=== PATIENT | female | born 1995 | race Two or more races ===

== ENCOUNTER 2016-04-20 15:14 | Emergency (ER) | payer OTHER, MEDICAID ==
[2016-04-20 15:20] VITALS: RESP 16; TEMP 97.3
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
[2016-04-20] MEDS ORDERED: IBUPROFEN 600 MG TAB PO ONE ×2 (16:37→16:41)
[2016-04-20 16:40] VITALS: BP 99/66; PULSE 79; O2SAT 94
== END 2016-04-20 16:40 | disposition home or self-care (01) ==
DX: S69.91XA Unspecified injury of right wrist, hand and finger(s), initial encounter (principal); W22.8XXA Striking against or struck by other objects, initial encounter; Y93.89 Activity, other specified

== ENCOUNTER 2017-01-28 10:43 | Emergency (ER) | payer MEDICAID ==
[2017-01-28 10:54] VITALS: PULSE 98; RESP 18; TEMP 98.6; O2SAT 100
[2017-01-28 10:59] VITALS: BP 129/53
--- NOTE | 2017-01-28 11:52 | EDPHY ---
General Narrative: CHIEF COMPLAINT: Left knee injury HISTORY OF PRESENT ILLNESS: Patient complains of left knee injury that occurred last night while walking. She was standing there and 2 dogs bumped into her left knee with her foot planted. She describes a valgus injury. She now has pain over the left lateral knee. It is severe. Difficult to walk on. Radiates in the left hip. No numbness or tingling. No lacerations. No other associated complaints or modifying factors. ESTABLISHED ORTHOPEDIST: None REVIEW OF SYSTEMS: Ten systems reviewed and are negative unless otherwise noted in the HPI PAST MEDICAL HISTORY: Previous orthopedic injury PAST SURGICAL HISTORY: None SOCIAL HISTORY: Currently student at [employer] FAMILY HISTORY: Noncontributory EXAMINATION General Appearance: Alert, no distress Cardiovascular: Pulses normal throughout. Brisk cap refill Neurological: A&O, sensory symmetric, strength symmetric. No footdrop. Skin: Warm and dry, no rash. No petechiae or purpura. No lacerations or abrasions Extremities: Upper extremity range of motion is symmetric in all painful. Right lower extremity range of motion intact. Left lower extremity tender palpation of the lateral knee. Range of motion is intact but painful. No tenderness of the left ankle or foot. No tenderness of the left calcaneus. Resting angle of 45 in the knee. Neurovascular intact distally. Psychiatric: Mood and affect normal DIFFERENTIAL DIAGNOSES: Including but not limited to sprain, strain, fracture, dislocation MDM: 11:40 a.m. Acute sprain of the left knee, suspected lateral collateral ligament. No fracture on x-ray. Neurovascular intact. Weightbearing as tolerated instructions. We will provide crutches for short-term relief. Recommend orthopedic follow-up for definitive care. ED precautions for worsening symptoms , numbness or tingling. Patient is comfortable with this plan. Discharged in stable condition. ED Precautions: Worsening pain. Erythema, edema, cyanosis, pallor, paresthesia or anesthesia. - Diagnostics Imaging Results: Imaging Impressions Knee X-Ray 01/28/17 10:54 Impression: There is no acute osseous abnormality. If there is progression of the patient's symptoms, MR imaging could be considered. - History Smoking Status: Never smoked - Objective Vital Signs: Initial Vital Signs Temperature (C) 98.6 F 01/28/17 10:51 Heart Rate 98 01/28/17 10:51 Respiratory Rate 18 01/28/17 10:51 Blood Pressure 84/56 L 01/28/17 10:51 O2 Sat (%) 100 01/28/17 10:51 O2 Delivery Mode Room Air Allergies/Adverse Reactions: No Known Allergies Allergy (Unverified 01/28/17 10:51) Home Medications: Medication Instructions Recorded NK [No Known Home Meds] 01/28/17 Departure - Departure Disposition: Home, Routine, Self-Care Clinical Impression: Knee LCL sprain Qualifiers: Encounter type: initial encounter Laterality: left Qualified Code(s): S83.422A - Sprain of lateral collateral ligament of left knee, initial encounter Condition: Good Instructions: Knee Sprain (ED) Additional Instructions: 1. Weightbearing as tolerated 2. Naproxen 1 pill by mouth twice daily 3. Orthopedic follow-up 4. ED precautions as discussed Referrals: NONE *PRIMARY CARE P,. [Primary Care Provider] - As per Instructions Andrés Lima MD [Medical Doctor] - As per Instructions Stand Alone Forms: School Excuse
[2017-01-28] MEDS ORDERED: NAPROXEN SODIUM 220 MG TAB PO ONE (11:53)
== END 2017-01-28 12:14 | disposition home or self-care (01) ==
DX: S83.422A Sprain of lateral collateral ligament of left knee, initial encounter (principal); W54.1XXA Struck by dog, initial encounter; Y99.8 Other external cause status; Y93.01 Activity, walking, marching and hiking

== ENCOUNTER 2017-05-06 15:58 | Emergency (ER) | payer MEDICAID ==
[2017-05-06 16:07] VITALS: BP 103/69; PULSE 94; RESP 16; TEMP 97.9; O2SAT 96
--- NOTE | 2017-05-06 16:37 | EDPHY ---
H & P Stated Complaint: dysuria Source: Patient Exam Limitations: No limitations - Personal History LMP (Females 10-55): 22-28 Days Ago Current Tetanus/Diphtheria Vaccine: Yes - Medical/Surgical History Hx Asthma: Yes Hx Chronic Respiratory Disease: No Hx Diabetes: No Hx Cardiac Disease: No Hx Renal Disease: No Hx Cirrhosis: No Hx Alcoholism: No Hx HIV/AIDS: No Hx Splenectomy or Spleen Trauma: No Other PMH: PSH: tooth implant;. PMH: ovarian cyst; uti; kidney infection, MIGRAINES, ASTHMA - Social History Smoking Status: Never smoked Time Seen by Provider: 05/06/17 16:34 HPI/ROS: HPI: This is a 22-year-old female who presents with Chief Complaint: Dysuria Location: Quality: Dysuria Duration: 3-5 days Signs and Symptoms: no fever, no nausea, no vomiting, no hematemesis, no blood in stool, no abdominal bloating, no diarrhea, no back pain, + urinary frequency , + burning with urination, no vaginal bleeding/discharge, no indigestion, no chest pain, no shortness of breath, no neck stiffness Timing: Every time she urinates Severity: Moderate Context: The patient lives in [facility] but does not have a PCP presents with complaints of 3-5 day history of burning with urination, urinary frequency that feels like she starting to have a urinary tract infection. She has had them in the past but none within the last year. She denies fever/back pain/nausea/vomiting/abdominal pain. She is sexually active. Reports her last pelvic exam was approximately 1 year ago. Denies vaginal bleeding/discharge. Last menstrual period was 2 weeks ago. Patient also reports cold symptoms developing over the last 1-2 days. Did not receive influenza vaccine this year. Modifying Factors: None Comment: ROS: see HPI Constitutional: No fever, no chills, no weight loss Eyes: No blurred vision Respiratory: No shortness of breath, no cough Cardiovascular: No chest pain, no palpitations Gastrointestinal: No nausea, no vomiting, no diarrhea, no hematemesis, no blood in stool Genitourinary: + dysuria, no blood in urine Extremities: No myalgias, no edema Neurologic: No weakness, no numbness Skin: No rashes, no petechiae Hematologic: No bruising, no bleeding MEDICAL/SURGICAL/SOCIAL HISTORY: PSH: tooth implant PMH: ovarian cyst; uti; kidney infection, MIGRAINES, ASTHMA Social history: Employed. CONSTITUTIONAL: Well-appearing, young adult female, awake and alert, no obvious distress HEENT: Atraumatic and normocephalic, PERRL, EOMI. Tympanic membranes clear. Oropharynx clear, no exudate and moist pink mucosa. Airway patent. No lymphadenopathy. No meningismus. Cardiovascular: Normal S1/S2, regular rate, regular rhythm, without murmur rub or gallop. PULMONARY/CHEST: Symmetrical and nontender. Clear to auscultation bilaterally. Good air movement. No accessory muscle usage. ABDOMEN: Soft, nondistended, nontender, no rebound, no guarding, no peritoneal signs, no masses or organomegaly. No CVAT. EXTREMITIES: 2/2 pulses, strength 5/5, no deformities, no clubbing, no cyanosis or edema. NEUROLOGICAL: no focal neuro deficits. GCS 15. SKIN: Warm and dry, no erythema. no rash. Good capillary refill. (Zoe Tolliver) Constitutional: Initial Vital Signs Temperature (C) 36.6 C 05/06/17 16:05 Heart Rate 94 05/06/17 16:05 Respiratory Rate 16 05/06/17 16:05 Blood Pressure 103/69 05/06/17 16:05 O2 Sat (%) 96 05/06/17 16:05 O2 Delivery Mode Room Air Allergies/Adverse Reactions: No Known Allergies Allergy (Verified 05/06/17 16:04) Home Medications: Medication Instructions Recorded Azo 05/06/17 Nitrofurantoin Monohyd/M-Cryst 100 mg PO BID #14 capsule 05/06/17 [Macrobid 100 mg Capsule] Medical Decision Making ED Course/Re-evaluation: Urinalysis shows 1+ bacteria, 1-3 WBCs and RBCs, sent for urine culture, Macrobid given has no PCP to follow up on Patient will be referred to [facility]. Passed p.o. trial prior to discharge. Afebrile no systemic signs. No indication for pelvic exam at this time. No signs of otitis media/sinusitis/hypoxia/wheezing/pharyngitis This patient was seen under the supervision of my secondary supervising physician. I evaluated care for this patient independently. (Zoe Tolliver) I did not see this patient while she was in the emergency department. However her care was discussed with the PA while the patient was in the department. I agree with treatment plan and manage (Eric Ni) Differential Diagnosis: Differential diagnosis includes but is not limited to urinary tract infection, pyelonephritis, cystitis. (Zoe Tolliver) - Data Points Laboratory Results: 05/06/17 05/06/17 16:00 16:00 Urine Color RASHEED Urine Appearance CLEAR Urine pH 7.0 (5.0-7.5) Ur Specific [place] 1.018 (1.002-1.030) Urine Protein NEGATIVE (NEGATIVE) Urine Ketones NEGATIVE (NEGATIVE) Urine Blood NEGATIVE (NEGATIVE) Urine Nitrate NEGATIVE (NEGATIVE) Urine Bilirubin NEGATIVE (NEGATIVE) Urine Urobilinogen NEGATIVE EU EU (0.2-1.0) Ur Leukocyte Esterase NEGATIVE (NEGATIVE) Urine RBC 1-3 /hpf /hpf (0-3) Urine WBC 1-3 /hpf /hpf (0-3) Ur Epithelial Cells TRACE /lpf /lpf (NONE-1+) Urine Bacteria 1+ /hpf H /hpf (NONE SEEN) Urine Mucus TRACE /lpf /lpf (NONE-1+) Urine Glucose NEGATIVE (NEGATIVE) Urine Test NEGATIVE Departure - Departure Disposition: Home, Routine, Self-Care Clinical Impression: Bacteria in urine, Upper respiratory infection Condition: Good Instructions: Urinary Tract Infection in Women (ED) Additional Instructions: Consume a minimum of 8-10 glasses of water or electrolyte fluid replacement drinks that include Gatorade, Powerade, Pedialyte. Please refrain from having sexual intercourse until all symptoms have resolved. Take all of the antibiotics until complete as directed. Use joqv-[id number] cough syrup, cough drops, decongestants for your symptoms of a cold. Referrals: [facility],. [Clinic] - As per Instructions Stand Alone Forms: School Excuse Prescriptions: Nitrofurantoin Monohyd/M-Cryst [Macrobid 100 mg Capsule] 100 mg PO BID #14 capsule
== END 2017-05-06 16:45 | disposition home or self-care (01) ==
DX: R82.71 Bacteriuria (principal); N39.0 Urinary tract infection, site not specified; J45.909 Unspecified asthma, uncomplicated; B96.89 Other specified bacterial agents as the cause of diseases classified elsewhere

== ENCOUNTER 2017-06-01 11:52 | Emergency (ER) | payer MEDICAID ==
[2017-06-01 11:59] VITALS: BP 111/83; PULSE 109; RESP 20; TEMP 98.4; O2SAT 96
--- NOTE | 2017-06-01 12:03 | EDPHY ---
H & P Stated Complaint: flank pain - Personal History LMP (Females 10-55): 15-21 Days Ago Current Tetanus/Diphtheria Vaccine: Yes Current Tetanus Diphtheria and Acellular Pertussis (TDAP): Yes - Medical/Surgical History Hx Asthma: Yes Hx Chronic Respiratory Disease: No Hx Diabetes: No Hx Cardiac Disease: No Hx Renal Disease: No Hx Cirrhosis: No Hx Alcoholism: No Hx HIV/AIDS: No Hx Splenectomy or Spleen Trauma: No Other PMH: PSH: tooth implant;. PMH: ovarian cyst; uti; kidney infection, MIGRAINES, ASTHMA - Social History Smoking Status: Never smoked Time Seen by Provider: 06/01/17 12:00 HPI/ROS: CHIEF COMPLAINT: Bilateral flank pain "I think I have urinary tract infection " HISTORY OF PRESENT ILLNESS: 22-year-old immunocompetent female complaining 3 days of bilateral flank pain with antecedent increased frequency and dysuria. No vomiting. Positive nausea. No fever or chills. No abdominal pain. No abnormal vaginal bleeding or discharge. No headache. No chest pain. No flu- like symptoms. No incontinence no retention no saddle anesthesia no radiculopathy. She was seen emergency department approximately 1 month ago for UTI like symptoms states that she felt better after few days of antibiotic therapy. REVIEW OF SYSTEMS: A ten point review of systems was performed and is negative with the exception of the items mentioned in the HPI PAST MEDICAL & SURGICAL HISTORY: No pertinent medical or surgical history SOCIAL HISTORY: Nonsmoker PHYSICAL EXAM (Prior to examination, patient consented to physical exam, hands were washed and my usual and customary physical exam procedures followed) 1) GENERAL: Well-developed, well-nourished, alert and oriented. Appears to be in no acute distress. 2) HEAD: Normocephalic, atraumatic 3) HEENT: Pupils equal, round, reactive to light bilaterally. Sclera anicteric. 4) NECK: Full range of motion, no meningeal signs. 5) LUNGS: Clear auscultation bilaterally, no wheezes, no rhonchi, no retractions. 6) HEART: Regular rate and rhythm, no murmur, no heave, no gallop. 7) ABDOMEN: No guarding, no rebound, no focal tenderness, negative McBurney's, negative Monzon's, negative Rovsing's, negative peritoneal sign, 8) MUSCULOSKELETAL: Moving all extremities, no focal areas of tenderness, no obvious trauma. No peripheral edema or discoloration. 9) BACK: Positive bilateral CVA tenderness, no midline vertebral tenderness, no fluctuance, no step-off, no obvious trauma, no visual or palpable . abnormality. Patella Achilles reflexes intact to bilateral strength 5/5. 10) SKIN: No rash, no petechiae. 11) Psychiatric: Patient is oriented X 3, there is no agitation. DIFFERENTIAL DIAGNOSIS: In no particular include but limited to cystitis, pyelonephritis, perinephric abscess, nephrolithiasis, muscle strain, (Olga Lidia Carolina) Constitutional: Initial Vital Signs Temperature (C) 36.9 C 06/01/17 11:56 Heart Rate 109 H 06/01/17 11:56 Respiratory Rate 20 06/01/17 11:56 Blood Pressure 111/83 H 06/01/17 11:56 O2 Sat (%) 96 06/01/17 11:56 O2 Delivery Mode Room Air Allergies/Adverse Reactions: No Known Allergies Allergy (Verified 06/03/17 20:20) Home Medications: Medication Instructions Recorded Cephalexin [Keflex] 500 mg PO TID 7 Days cap 06/01/17 Medical Decision Making ED Course/Re-evaluation: 12:15 p.m. I reviewed the patient's old medical records including urine cultures dated 05/06/2017 showing multiple colony types. At this time awaiting urinalysis. I recommended IV hydration and laboratories which she declines at this time, prefers only urinalysis. Care of patient under supervision of secondary supervising physician Dr Jeannette Daly. 1:10 p.m.: Re-evaluation, discussed her laboratory results positive for bacteriuria and pyuria. She does not want IV intervention. I have offered analgesia she only wants nonnarcotic, only wants Motrin and Tylenol. Plan will be discharged with oral Keflex. At this time I think she can be treated on outpatient basis as she has had no nausea or vomiting, doubt sepsis. (Olga Lidia Carolina) Other Provider: The patient was evaluated and managed by the Physician Director Of Sales Marketing. My co- signature indicates that I have reviewed this chart and I agree with the findings and plan of care as documented. I am the secondary supervising physician. (Jeannette Daly) - Data Points Microbiology Results: MICROBIOLOGY 06/01/17 12:05 Urine,Clean Catch Urine Culture - Final Escherichia Coli Medications Given: Discontinued Medications Cephalexin HCl (Keflex) 500 mg PO EDNOW ONE PRN Reason: Protocol Stop: 06/01/17 12:54 Last Admin: 06/01/17 13:17 Dose: 500 mg Ibuprofen (Motrin) 600 mg PO EDNOW ONE Stop: 06/01/17 13:19 Last Admin: 06/01/17 13:21 Dose: 600 mg Departure - Departure Disposition: Home, Routine, Self-Care Clinical Impression: Acute pyelonephritis Condition: Good Instructions: Urinary Tract Infection in Women (ED) Additional Instructions: Return to the ER immediately if you experience fevers/chills, flu like symptoms , inability to tolerate oral intake, nausea or vomiting, or any other symptoms that concern you. Referrals: Cheli Coy MD [Medical Doctor] - 2-3 days, call for appt. Stand Alone Forms: School Excuse Prescriptions: Cephalexin [Keflex] 500 mg PO TID 7 Days cap
[2017-06-01] MEDS ORDERED: CEPHALEXIN 500 MG CAP PO ONE (12:53)
[2017-06-01] MEDS ORDERED: IBUPROFEN 600 MG TAB PO ONE (13:18)
== END 2017-06-01 13:55 | disposition home or self-care (01) ==
DX: N10 Acute pyelonephritis (principal); B96.20 Unspecified Escherichia coli [E. coli] as the cause of diseases classified elsewhere; J45.909 Unspecified asthma, uncomplicated

== ENCOUNTER 2017-06-03 20:13 | Emergency (ER) | payer MEDICAID ==
[2017-06-03] MEDS ORDERED: ONDANSETRON 4 MG/2 ML VIAL ONE (20:25)
[2017-06-03] MEDS ORDERED: ONDANSETRON 4 MG/2 ML VIAL IVP ONE (20:40)
[2017-06-03] MEDS ORDERED: NS 1,000 ML IV ONE ×2 (20:45→21:47)
--- NOTE | 2017-06-03 20:47 | EDPHY ---
General - History Smoking Status: Never smoked Time Seen by Provider: 06/03/17 20:33 Narrative: CHIEF COMPLAINT: Flank pain HISTORY OF PRESENT ILLNESS: Patient complains of acute left-sided flank pain. She was seen here 3 days ago with bilateral flank pain and dysuria, and she was diagnosed with a urinary tract infection. Discharged home on Keflex three times daily dosing. She has been taking this appropriately. She reports feeling better last night and into this morning, but then suddenly had worsening pain on the left flank. It is constant, 10/10 pain. No position of comfort. Nausea but no vomiting. No fever. Difficulty ambulating due to the pain. No trauma or injury. No blood in the urine. No other associated complaints modifying factors. REVIEW OF SYSTEMS: Ten systems reviewed and are negative unless otherwise noted in the HPI PCP: [facility] GI SPECIALISTS: [facility] GI PAST MEDICAL HISTORY: Celiac SOCIAL HISTORY: Nonsmoker. Very rare alcohol intake. No drug use. FAMILY HISTORY: Noncontributory EXAMINATION General Appearance: Alert, no distress. In obvious discomfort Head: normocephalic, atraumatic Eyes: Pupils equal and round, no conjunctival pallor or injection ENT, Mouth: Mucous membranes moist Neck: Normal inspection, supple, non-tender Respiratory: Lungs are clear to auscultation. No wheeze, rhonchi or crackles. Cardiovascular: Tachycardic rate. Regular rhythm. Gastrointestinal: Abdomen is soft and nondistended. There is moderate left CVA tenderness. No rigidity or tympany. No guarding of the abdomen. Back: non-tender, no bony abnormalities Neurological: A&O, nonfocal, normal gait Skin: Warm and dry, no rash. No petechiae or purpura Extremities: Nontender, no pedal edema Psychiatric: Mood and affect normal DIFFERENTIAL DIAGNOSES: Including but not limited to renal colic, pyelonephritis, ureteral stone, cystitis, colitis MDM: 8:45 p.m. Left flank pain with recent diagnosis of UTI. The patient is in obvious discomfort but she is in no acute distress. She is tachycardic but afebrile. She is declining pain medication at this time. She is IV fluid infusing. Laboratory studies have been ordered. Urinalysis has been sent. High suspicion for pyelonephritis versus renal colic. I will discuss with Dr. Mas 9:15 p.m. Urinalysis reveals microscopic hematuria but no signs of infection. Kidney function is within normal limits. She has received IV Toradol 30 mg. I do feel she warrants CT scan given her vital signs, clinical exam and her microscopic hematuria. I discussed with Dr. Mas and we have ordered CT scan without contrast. Patient is aware of this and has consented to the scan. She is still declining any narcotic pain medication. 10:05 p.m. Radiologist has read the CT scan of the abdomen pelvis. No evidence of stone or explanation of the renal colic presentation. Appendix is visualized. Constipation noted. 10:15 p.m. Patient re-evaluated. She was feeling much better but now her left flank pain is returning. On exam she does have tenderness in left flank but no abdominal tenderness. I have offered IV pain medication but she has declined. I discussed with Dr. Mas for his examination. Continue with IV fluid resuscitation. 10:30 p.m. Patient has been evaluated by Dr. Mas. 11:15 p.m. Patient evaluated by Dr. Mas. He is in agreement with the assessment thus far of likely pyelonephritis less likely recently passed stone. De he directly discussed with the patient the further need for pain medication and changing her antibiotic. She continues to decline narcotics so we will try IV lidocaine. 12:15 a.m. Patient has received IV lidocaine and has some improvement of her symptoms. I have sat down there for 15 min discussing risks, benefits and alternatives of her care. I strongly recommended pain medication and admission to the hospital due to her persistent tachycardia despite our treatment with IV fluid and non narcotic pain medications. She has declined. She would like to go home. I do feel she is capable of understanding the risks and benefits of this. We discussed Percocet and switching to Levaquin as there is good susceptibility based on the urine culture from 3 days ago. We discussed strict ED precautions. I strongly encouraged her to return emergency department should she change her mind regarding admission or to return if she has no improvement within 12 hr. She voiced her understanding of this and she is discharged home stable condition with tachycardia at this time. Addendum June 04, 2017, 2:29 p.m. I have contacted the patient to check on her improvement. She informs me that she has not improved and is not tolerating water. I asked her to return to emergency department, and she informed me that she will do so within the next hour. SUPERVISION: Patient was independently examined, but I discussed the case with my secondary supervising physician Dr. Mas ([facility]) Medical Decision Making: I did evaluate this patient independently. She is well appearing but has intermittent tachycardia is seems to be related to pain. Her lab work and CT exam are reassuring. She has been on Keflex for 2 days which should be effective according to the microbiology results however clinically she is not improved. I recommended switching her to Levaquin which should also be sensitive according to microbiology. Patient's current urinalysis may be false negative because antibiotics she is taking. (Teto Mas) - Objective Vital Signs: Initial Vital Signs Temperature (C) 37.1 C 06/03/17 20:31 Heart Rate 124 H 06/03/17 20:31 Respiratory Rate 22 H 06/03/17 20:31 Blood Pressure 131/68 H 06/03/17 20:31 O2 Sat (%) 96 06/03/17 20:31 O2 Delivery Mode Room Air Allergies/Adverse Reactions: No Known Allergies Allergy (Verified 06/03/17 20:20) Home Medications: Medication Instructions Recorded Cephalexin [Keflex] 500 mg PO TID 7 Days cap 06/01/17 Metoclopramide [Reglan 10 mg tab 10 mg PO QID #6 tab 06/04/17 (*)] levOFLOXACIN [levAQUIN (*)] 750 mg PO DAILY #4 tab 06/04/17 Laboratory Results: Laboratory Results 06/03/17 20:40 06/03/17 20:40 Medications Given: Discontinued Medications Sodium Chloride (Ns) 1,000 mls @ 0 mls/hr IV ONCE ONE PRN Reason: Wide Open Stop: 06/03/17 20:46 Last Admin: 06/03/17 20:48 Dose: 1,000 mls Sodium Chloride (Ns) 1,000 mls @ 0 mls/hr IV ONCE ONE PRN Reason: Wide Open Stop: 06/03/17 21:48 Last Admin: 06/03/17 21:47 Dose: 1,000 mls Lidocaine HCl 100 mg/ Sodium (Chloride) 110 mls @ 600 mls/hr IV EDNOW ONE Stop: 06/03/17 22:51 Last Admin: 06/03/17 23:35 Dose: 110 mls Ketorolac Tromethamine (Toradol) 30 mg IVP EDNOW ONE Stop: 06/03/17 21:05 Last Admin: 06/03/17 21:07 Dose: 30 mg Levofloxacin (Levaquin) 750 mg PO EDNOW ONE PRN Reason: Protocol Stop: 06/04/17 00:14 Last Admin: 06/04/17 00:41 Dose: 750 mg Ondansetron HCl (Zofran) 4 mg IVP EDNOW ONE Stop: 06/03/17 20:41 Last Admin: 06/03/17 20:45 Dose: 4 mg Oxycodone/Acetaminophen (Percocet 5/325mg Prepack#4) 1 btl TAKEHOME EDNOW ONE Stop: 06/04/17 00:14 Last Admin: 06/04/17 00:41 Dose: 1 btl Departure - Departure Disposition: Home, Routine, Self-Care Clinical Impression: Acute left flank pain, Pyelonephritis Condition: Fair Instructions: Oxycodone/Acetaminophen (By mouth), Urinary Tract Infection in Women (ED), Kidney Infection (ED), Flank Pain (ED) Additional Instructions: 1. Medication as prescribed 2. Strict ED precautions. If you do not feel 100% better within 12 hr, return to emergency department for re-evaluation. 3. Return to emergency department sooner if he have any fever, vomiting or cannot tolerate intake of liquids by mouth Referrals: Natalie Gonzalez DO [Doctor of Osteopathy] - As per Instructions Prescriptions: levOFLOXACIN [levAQUIN (*)] 750 mg PO DAILY #4 tab
[2017-06-03 20:51] LABS: PLATELET COUNT 336 10^3/uL (150-400)
[2017-06-03] MEDS ORDERED: KETOROLAC 30 MG/1 ML SDV IVP ONE (21:04)
[2017-06-03] MEDS ORDERED: KETOROLAC 15 MG/1 ML SDV ONE (21:05)
[2017-06-03] MEDS ORDERED: LIDOCAINE 1% 100 MG in NS 100 ML IV ONE (22:41)
[2017-06-04] MEDS ORDERED: OXYCODONE/APAP 5/325MG PREPACK#4 BTL TAKEHOME ONE (00:13)
[2017-06-04 02:32] VITALS: BP 114/72; PULSE 88; RESP 16; TEMP 98.2; O2SAT 96
== END 2017-06-04 00:44 | disposition home or self-care (01) ==
DX: N12 Tubulo-interstitial nephritis, not specified as acute or chronic (principal)
CPT/HCPCS: 96365; J1885; J2405

== ENCOUNTER 2017-06-04 16:14 | Emergency (ER) | payer MEDICAID ==
[2017-06-04] MEDS ORDERED: NS 1,000 ML IV ONE (17:04)
[2017-06-04] MEDS ORDERED: KETOROLAC 30 MG/1 ML SDV IVP ONE (17:14)
[2017-06-04] MEDS ORDERED: ACETAMINOPHEN 500 MG TAB PO ONE (17:14)
[2017-06-04] MEDS ORDERED: METOCLOPRAMIDE 10 MG/2 ML VIAL IVP ONE (17:15)
[2017-06-04 17:54] LABS: PLATELET COUNT 287 10^3/uL (150-400)
[2017-06-04 18:18] VITALS: RESP 16
--- NOTE | 2017-06-04 19:10 | EDPHY ---
H & P Stated Complaint: Bilat flank pain for 1 x week, recent diagnosis with kidney inf. - Personal History LMP (Females 10-55): 8-14 Days Ago Current Tetanus Diphtheria and Acellular Pertussis (TDAP): Yes - Medical/Surgical History Hx Asthma: Yes Hx Chronic Respiratory Disease: No Hx Diabetes: No Hx Cardiac Disease: No Hx Renal Disease: No Hx Cirrhosis: No Hx Alcoholism: No Hx HIV/AIDS: No Hx Splenectomy or Spleen Trauma: No Other PMH: PSH: tooth implant;. PMH: ovarian cyst; uti; kidney infection, MIGRAINES, ASTHMA - Social History Smoking Status: Never smoked Time Seen by Provider: 06/04/17 16:57 HPI/ROS: Chief complaint: Back pain, pyelonephritis History of present illness: This is a 22-year-old female who returns to the emergency room for persistent back pain. She has been diagnosed with a pyelonephritis. She reports initially she had a urinary tract infection with symptoms including dysuria, frequency, hesitancy. Symptoms progressed to back pain. She has had nausea but no vomiting. She has been seen twice here before. Initially treated with Keflex but switched to Levaquin. Urine culture was obtained, E coli isolated, pathogen is susceptible to both cephalosporins and fluoroquinolones. Patient reports pain is difficult to control. However she does not like pain medication. She has declined IV narcotics at previous visits. She did take a Percocet last night but it made her nauseous so she stopped taking it. She has only taken ibuprofen intermittently. She denies any new signs or symptoms since previously being seen. Review of systems: A 10 point review of systems was obtained and other than described above was negative (Cesario Garg) - Physical Exam Exam: General Appearance: Alert, nontoxic. Eyes: Pupils equal and round no pallor or injection. ENT, Mouth: Mucous membranes moist. Respiratory: There are no retractions, lungs are clear to auscultation. Cardiovascular: Regular rate and rhythm. Gastrointestinal: Abdomen is soft and non tender, no masses, bowel sounds normal. Genitourinary: Mild CVA tenderness bilaterally Neurological: Alert and oriented x4. Strength and sensation intact and symmetrical. Skin: Warm and dry, no rashes. Musculoskeletal: Neck is supple non tender. Extremities are symmetrical, full range of motion. Psychiatric: Patient is oriented X 3, there is no agitation. (Cesario Garg) Constitutional: Initial Vital Signs Temperature (C) 36.7 C 06/04/17 16:17 Heart Rate 109 H 06/04/17 16:17 Respiratory Rate 18 06/04/17 16:17 Blood Pressure 109/72 06/04/17 16:17 O2 Sat (%) 95 06/04/17 16:17 O2 Delivery Mode Room Air Allergies/Adverse Reactions: No Known Allergies Allergy (Verified 06/03/17 20:20) Home Medications: Medication Instructions Recorded Cephalexin [Keflex] 500 mg PO TID 7 Days cap 06/01/17 Metoclopramide [Reglan 10 mg tab 10 mg PO QID #6 tab 06/04/17 (*)] levOFLOXACIN [levAQUIN (*)] 750 mg PO DAILY #4 tab 06/04/17 Medical Decision Making ED Course/Re-evaluation: The patient was evaluated and managed by the physician's kindergarten assistant. My cosignature indicates that I reviewed the chart and I agree with the findings and plan of care as documented. I am the secondary supervising physician. ( Yina Mcguire) I have reviewed patient's previous visits including urine culture and CT scan results. Patient is discussed with my secondary supervising physician Dr. Yina Mcguire. Patient presents to the emergency department after being diagnosed with pyelonephritis and treated at home with Levaquin. Symptoms persist. She is nontoxic. Lab studies unremarkable. Urinalysis largely unremarkable. Appears her primary issue is nausea keeping her from taking her medications. She is symptomatically treated and reports improvement in nausea and pain. She is actively asking to eat. She asked for a dose of Levaquin IV here to ensure she gets the medication down, this is given. She is comfortable being discharged home. Home care is discussed including symptomatic care and continuing her Levaquin. She is to follow up with a primary care doctor for recheck. Return precautions are given. Patient voiced understanding and agreement with plan. (Cesario Garg) Differential Diagnosis: Included but not limited to cystitis, pyelonephritis, unlikely nephrolithiasis, intra-abdominal pathology or pelvic pathology, patient had CT scan yesterday which was negative, denies pelvic pain or vaginal discharge, has positive urine culture (Cesario Garg) - Data Points Laboratory Results: Laboratory Results 06/04/17 17:29 06/04/17 17:29 06/04/17 18 06/04/17 17:51 17:29 17:29 WBC RBC Hgb Hct MCV MCH MCHC RDW Plt Count MPV Neut % (Auto) Lymph % (Auto) Barnes % (Auto) Eos % (Auto) Baso % (Auto) Nucleat RBC Rel Count Absolute Neuts (auto) Absolute Lymphs (auto) Absolute Monos (auto) Absolute Eos (auto) Absolute Basos (auto) Absolute Nucleated RBC Immature Gran % Immature Gran # Sodium 142 mEq/L mEq/L (135-145) Potassium 4.2 mEq/L mEq/L (3.5-5.2) Chloride 109 mEq/L D mEq/L (97-110) Carbon Dioxide 18 mEq/l L mEq/l (22-31) Anion Gap 15 mEq/L mEq/L (8-16) BUN 6 mg/dL L mg/dL (7-23) Creatinine 0.8 mg/dL mg/dL (0.6-1.0) Estimated GFR > 60 Glucose 82 mg/dL mg/dL (70-100) Calcium 9.4 mg/dL mg/dL (8.5-10.4) Total Bilirubin 0.5 mg/dL D mg/dL (0.1-1.4) Conjugated Bilirubin 0.2 mg/dL mg/dL (0.0-0.5) Unconjugated Bilirubin 0.3 mg/dL mg/dL (0.0-1.1) AST 17 IU/L IU/L (14-46) ALT 27 IU/L IU/L (9-52) Alkaline Phosphatase 75 IU/L IU/L (38-126) Total Protein 7.2 g/dL g/dL (6.3-8.2) Albumin 4.3 g/dL g/dL (3.5-5.0) Lipase 67 IU/L IU/L (23-300) Beta HCG, Qual NEGATIVE Urine Color PALE YELLOW Urine Appearance CLEAR Urine pH 6.0 (5.0-7.5) Ur Specific [place] 1.011 (1.002-1.030) Urine Protein NEGATIVE (NEGATIVE) Urine Ketones NEGATIVE (NEGATIVE) Urine Blood NEGATIVE (NEGATIVE) Urine Nitrate NEGATIVE (NEGATIVE) Urine Bilirubin NEGATIVE (NEGATIVE) Urine Urobilinogen NEGATIVE EU EU (0.2-1.0) Ur Leukocyte Esterase NEGATIVE (NEGATIVE) Urine RBC NONE SEEN /hpf /hpf (0-3) Urine WBC NONE SEEN /hpf /hpf (0-3) Ur Epithelial Cells TRACE /lpf /lpf (NONE-1+) Urine Bacteria 1+ /hpf H /hpf (NONE SEEN) Urine Mucus TRACE /lpf /lpf (NONE-1+) Urine Glucose NEGATIVE (NEGATIVE) 06/04/17 17:29 WBC 8.06 10^3/uL 10^3/uL (3.80-9.50) RBC 4.92 10^6/uL 10^6/uL (4.18-5.33) Hgb 14.5 g/dL g/dL (12.6-16.3) Hct 44.0 % % (38.0-47.0) MCV 89.4 fL fL (81.5-99.8) MCH 29.5 pg pg (27.9-34.1) MCHC 33.0 g/dL g/dL (32.4-36.7) RDW 12.6 % % (11.5-15.2) Plt Count 287 10^3/uL 10^3/uL (150-400) MPV 9.2 fL fL (8.7-11.7) Neut % (Auto) 68.8 % % (39.3-74.2) Lymph % (Auto) 22.3 % % (15.0-45.0) Barnes % (Auto) 4.8 % % (4.5-13.0) Eos % (Auto) 3.3 % % (0.6-7.6) Baso % (Auto) 0.4 % % (0.3-1.7) Nucleat RBC Rel Count 0.0 % % (0.0-0.2) Absolute Neuts (auto) 5.54 10^3/uL 10^3/uL (1.70-6.50) Absolute Lymphs (auto) 1.80 10^3/uL 10^3/uL (1.00-3.00) Absolute Monos (auto) 0.39 10^3/uL 10^3/uL (0.30-0.80) Absolute Eos (auto) 0.27 10^3/uL 10^3/uL (0.03-0.40) Absolute Basos (auto) 0.03 10^3/uL 10^3/uL (0.02-0.10) Absolute Nucleated RBC 0.00 10^3/uL 10^3/uL (0-0.01) Immature Gran % 0.4 % % (0.0-1.1) Immature Gran # 0.03 10^3/uL 10^3/uL (0.00-0.10) Sodium Potassium Chloride Carbon Dioxide Anion Gap BUN Creatinine Estimated GFR Glucose Calcium Total Bilirubin Conjugated Bilirubin Unconjugated Bilirubin AST ALT Alkaline Phosphatase Total Protein Albumin Lipase Beta HCG, Qual Urine Color Urine Appearance Urine pH Ur Specific Eagar Urine Protein Urine Ketones Urine Blood Urine Nitrate Urine Bilirubin Urine Urobilinogen Ur Leukocyte Esterase Urine RBC Urine WBC Ur Epithelial Cells Urine Bacteria Urine Mucus Urine Glucose Medications Given: Discontinued Medications Acetaminophen (Tylenol) 1,000 mg PO EDNOW ONE Stop: 06/04/17 17:15 Last Admin: 06/04/17 19:33 Dose: Not Given Sodium Chloride (Ns) 1,000 mls @ 0 mls/hr IV EDNOW ONE; Wide Open PRN Reason: Protocol Stop: 06/04/17 17:05 Last Admin: 06/04/17 17:43 Dose: 1,000 mls Levofloxacin/Dextrose (Levaquin 750 Mg (Premix)) 150 mls @ 100 mls/hr IV EDNOW ONE PRN Reason: Protocol Stop: 06/04/17 18:45 Last Admin: 06/04/17 18:13 Dose: 150 mls Ketorolac Tromethamine (Toradol) 30 mg IVP EDNOW ONE Stop: 06/04/17 17:15 Last Admin: 06/04/17 17:45 Dose: 30 mg Metoclopramide HCl (Reglan Injection) 10 mg IVP EDNOW ONE Stop: 06/04/17 17:16 Last Admin: 06/04/17 17:45 Dose: 10 mg Departure - Departure Disposition: Home, Routine, Self-Care Clinical Impression: Pyelonephritis Condition: Good Instructions: Kidney Infection (ED) Additional Instructions: Follow-up with a primary care doctor next week for recheck without fail Continue antibiotics until finished Use ibuprofen 600 mg 3 times a day for the next 2-3 days for pain control In addition You can take Tylenol 650 mg every 4-6 hours as needed for pain Use Reglan for nausea and vomiting Drink plenty of fluids to stay hydrated If symptoms worsen or new symptoms develop return to the emergency room for recheck Referrals: NONE *PRIMARY CARE P,. [Primary Care Provider] - As per Instructions [facility],. [Clinic] - As per Instructions Stand Alone Forms: School Excuse Prescriptions: Metoclopramide [Reglan 10 mg tab (*)] 10 mg PO QID #6 tab
[2017-06-04 20:01] VITALS: BP 97/61; PULSE 102; TEMP 96.8; O2SAT 95
== END 2017-06-04 19:59 | disposition home or self-care (01) ==
DX: N12 Tubulo-interstitial nephritis, not specified as acute or chronic (principal); J45.909 Unspecified asthma, uncomplicated; B96.89 Other specified bacterial agents as the cause of diseases classified elsewhere; E86.9 Volume depletion, unspecified
CPT/HCPCS: 96365; 96366; J1885; J1956; J2765

== ENCOUNTER 2018-03-22 06:16 | Observation (INO) | payer MEDICAID ==
[2018-03-22] MEDS ORDERED: NS 1,000 ML IV ONE ×3 (06:40→08:15)
--- NOTE | 2018-03-22 06:44 | EDPHY ---
H & P Stated Complaint: painful urination, low back pain Time Seen by Provider: 03/22/18 06:31 - Personal History LMP (Females 10-55): 1-7 Days Ago Current Tetanus/Diphtheria Vaccine: Yes Current Tetanus Diphtheria and Acellular Pertussis (TDAP): Yes - Medical/Surgical History Hx Asthma: Yes Hx Chronic Respiratory Disease: No Hx Diabetes: No Hx Cardiac Disease: No Hx Renal Disease: No Hx Cirrhosis: No Hx Alcoholism: No Hx HIV/AIDS: No Hx Splenectomy or Spleen Trauma: No Other PMH: PSH: tooth implant;. PMH: ovarian cyst; uti; kidney infection, MIGRAINES, ASTHMA - Social History Smoking Status: Never smoked Constitutional: Initial Vital Signs Temperature (C) 36.7 C 03/22/18 06:19 Heart Rate 119 H 03/22/18 06:19 Respiratory Rate 18 03/22/18 06:19 Blood Pressure 107/76 03/22/18 06:19 O2 Sat (%) 95 03/22/18 06:19 O2 Delivery Mode Room Air Allergies/Adverse Reactions: gluten Allergy (Verified 03/22/18 06:18) Home Medications: Medication Instructions Recorded Cephalexin [Keflex (RX)] 500 mg PO TID #30 cap 03/22/18 Ondansetron Odt [Zofran Odt 4 mg 4 mg PO Q4 PRN #10 tab 03/22/18 (RX)] Medical Decision Making - Diagnostics Imaging Results: Imaging Impressions Abdomen/Pelvis Ultrasound 03/22/18 09:24 Impression: 1. No visible etiology for pain. 2. Minimal debris in the bladder, a nonspecific finding which can be seen with infection or other etiology. Findings discussed with Herve Henry MD 03/22/2018 at 10:37. Imaging: Discussed imaging studies w/ fisher scallop Radiologist ED Course/Re-evaluation: CHIEF COMPLAINT: Frequent urination, painful urination, low back pain HISTORY OF PRESENT ILLNESS: 23-year-old female who has 1 week worth of symptoms of lower urinary tract infection including frequency, burning, urgency. Over the last day it progressed to bilateral flank pain. She denies fevers or chills however she is nauseated. She also is most comfortable when type position because it makes her kidneys feel better. She has had prior urinary tract infections. No vomiting, diarrhea, lightheadedness, or other associated symptoms. REVIEW OF SYSTEMS: A comprehensive 10 system review of systems is otherwise negative aside from elements mentioned in the history of present illness and medical decision making. PHYSICAL EXAM: HR, BP, O2 Sat, RR. Temp noted General Appearance: Alert, well hydrated, appropriate, and non-toxic appearing. Head: Atraumatic without scalp tenderness or obvious injury Eyes: Pupils equal, round, reactive to light and accommodation, EOMI, no trauma , no injection. Ears: Clear bilaterally, no perforation, normal landmarks Nose: Atraumatic, no rhinorrhea, clear. Throat: There is no erythema or exudates, no lesions, normal tonsils, mucus membranes moist. Neck: Supple, 2+ carotid upstroke, nontender, no lymphadenopathy. Respiratory: No retractions, no distress, no wheezes, and no accessory muscle use. Lungs are clear to auscultation bilaterally. Cardiovascular: Regular rate and rhythm, no murmurs, rubs, or gallops. Bilateral carotid, radial, dorsalis pedis, and posterior tibial pulses intact. Good capillary refill all extremities. Gastrointestinal: Pain over the bladder. Otherwise: Abdomen is soft, nontender , non-distended, no masses, no rebound, no guarding, no peritoneal signs. Musculoskeletal: Bilateral flank pain. Normal active ROM of all extremities, atraumatic. Neurological: Alert, appropriate, and interactive. The patient has normal DTRs and non-focal cranial nerves, motor, sensory, and cerebellar exam. Skin: No rashes, good turgor, no nodules on palpation. Past medical history: Prior UTI Past surgical history: Noncontributory Family history: Noncontributory Social history: Single, student, does not abuse tobacco drugs or alcohol, employed DIFFERENTIAL DIAGNOSIS: The differential diagnosis for the patient's flank pain included but was not limited to musculoskeletal causes, kidney stone, pyelonephritis, shingles, diverticulitis, appendicitis, and aortic aneurysm. MEDICAL DECISION MAKING: This patient has a urinary tract infection based on her urine. Since she is nauseated and does not believe she can take oral antibiotics I will place an IV, hydrate her, provide Ketoralac and Zofran. I will also give her 1 g of ceftriaxone and start her on oral Keflex subsequently. She will follow up with primary care. Patient continues to feel poorly. Plan to administer an additional 4mg IV Zofran and another liter of IVF. After reassessment the patient continues to feel poorly, and in fact states she feels worse than ever. Concern for possible progression to sepsis given her severely infected urine and systemic symptoms. I offered admission to the hospital for further workup and management. She is amenable to this. Plan to admit for complicated pyelonephritis. Plan for US abdomen/pelvis for further evaluation. 09:[address] Spoke with hospitalist service. Dr. Prabhakar accepts admission for pyelonephritis. 10:[address] Wong, radiologist. US abdomen/pelvis is negative for acute processes. Patient will be admitted as above. - Data Points Laboratory Results: Laboratory Results 03/22/18 06:45 03/22/18 06:45 03/22/18 03/22/18 03/22/18 06:45 06:45 06:45 WBC 8.54 10^3/uL 10^3/uL (3.80-9.50) RBC 4.67 10^6/uL 10^6/uL (4.18-5.33) Hgb 14.0 g/dL g/dL (12.6-16.3) Hct 43.6 % % (38.0-47.0) MCV 93.4 fL fL (81.5-99.8) MCH 30.0 pg pg (27.9-34.1) MCHC 32.1 g/dL L g/dL (32.4-36.7) RDW 13.3 % % (11.5-15.2) Plt Count 296 10^3/uL 10^3/uL (150-400) MPV 9.5 fL fL (8.7-11.7) Neut % (Auto) 60.1 % % (39.3-74.2) Lymph % (Auto) 29.7 % % (15.0-45.0) [place] % (Auto) 6.6 % % (4.5-13.0) Eos % (Auto) 3.0 % % (0.6-7.6) Baso % (Auto) 0.4 % % (0.3-1.7) Nucleat RBC Rel Count 0.0 % % (0.0-0.2) Absolute Neuts (auto) 5.13 10^3/uL 10^3/uL (1.70-6.50) Absolute Lymphs (auto) 2.54 10^3/uL 10^3/uL (1.00-3.00) Absolute Monos (auto) 0.56 10^3/uL 10^3/uL (0.30-0.80) Absolute Eos (auto) 0.26 10^3/uL 10^3/uL (0.03-0.40) Absolute Basos (auto) 0.03 10^3/uL 10^3/uL (0.02-0.10) Absolute Nucleated RBC 0.00 10^3/uL 10^3/uL (0-0.01) Immature Gran % 0.2 % % (0.0-1.1) Immature Gran # 0.02 10^3/uL 10^3/uL (0.00-0.10) Sodium 142 mEq/L mEq/L (135-145) Potassium 4.3 mEq/L mEq/L (3.5-5.2) Chloride 111 mEq/L H mEq/L (97-110) Carbon Dioxide 21 mEq/l L mEq/l (22-31) Anion Gap 10 mEq/L mEq/L (6-14) BUN 9 mg/dL mg/dL (7-23) Creatinine 0.8 mg/dL mg/dL (0.6-1.0) Estimated GFR > 60 Glucose 90 mg/dL mg/dL (70-100) Calcium 9.0 mg/dL mg/dL (8.5-10.4) Beta HCG, Qual NEGATIVE Urine Color Urine Appearance Urine pH Ur Specific [place] Urine Protein Urine Ketones Urine Blood Urine Nitrate Urine Bilirubin Urine Urobilinogen Ur Leukocyte Esterase Urine RBC Urine WBC Ur Epithelial Cells Ur Renal Epithelial Cell Urine Crystals Ammonium Urate Crystals Calcium Carbonate Cryst Calcium Phosphate Cryst Calcium Oxalate Crystal Leucine Crystals Cystine Crystals Uric Acid Crystals Triple Phos Crystals Sulfonamide Crystals Cholesterol Crystals Tyrosine Crystals Bilirubin Crystals Amorphous Sediment Urine Bacteria Epithelial Casts Fatty Casts Hyaline Casts Granular Casts Waxy Casts Broad Casts RBC Casts WBC Casts Urine Mucus Urine Trichomonas Urine Yeast Urine Sperm Ur Oval Fat Bodies Ur Free Fat Droplets Urine Glucose Urine Comment 03/22/18 03/22/18 06:25 06:00 WBC RBC Hgb Hct MCV MCH MCHC RDW Plt Count MPV Neut % (Auto) Lymph % (Auto) [place] % (Auto) Eos % (Auto) Baso % (Auto) Nucleat RBC Rel Count Absolute Neuts (auto) Absolute Lymphs (auto) Absolute Monos (auto) Absolute Eos (auto) Absolute Basos (auto) Absolute Nucleated RBC Immature Gran % Immature Gran # Sodium Potassium Chloride Carbon Dioxide Anion Gap BUN Creatinine Estimated GFR Glucose Calcium Beta HCG, Qual Urine Color RED Urine Appearance MODERATELY TURBID Urine pH 5.0 (5.0-7.5) Ur Specific [place] 1.013 (1.002-1.030) Urine Protein 2+ H (NEGATIVE) Urine Ketones NEGATIVE (NEGATIVE) Urine Blood 3+ H (NEGATIVE) Urine Nitrate POSITIVE H (NEGATIVE) Urine Bilirubin NEGATIVE (NEGATIVE) Urine Urobilinogen 4.0 EU H EU (0.2-1.0) Ur Leukocyte Esterase NEGATIVE (NEGATIVE) Urine RBC 50-182 /hpf H /hpf Cancelled (0-3) Urine WBC 50-182 /hpf H /hpf Cancelled (0-3) Ur Epithelial Cells 2+ /lpf H /lpf Cancelled (NONE-1+) Ur Renal Epithelial Cell Cancelled Urine Crystals Cancelled Ammonium Urate Crystals Cancelled Calcium Carbonate Cryst Cancelled Calcium Phosphate Cryst Cancelled Calcium Oxalate Crystal Cancelled Leucine Crystals Cancelled Cystine Crystals Cancelled Uric Acid Crystals Cancelled Triple Phos Crystals Cancelled Sulfonamide Crystals Cancelled Cholesterol Crystals Cancelled Tyrosine Crystals Cancelled Bilirubin Crystals Cancelled Amorphous Sediment Cancelled Urine Bacteria TRACE /hpf H /hpf Cancelled (NONE SEEN) Epithelial Casts Cancelled Fatty Casts Cancelled Hyaline Casts Cancelled Granular Casts Cancelled Waxy Casts Cancelled Broad Casts Cancelled RBC Casts Cancelled WBC Casts Cancelled Urine Mucus 1+ /lpf /lpf Cancelled (NONE-1+) Urine Trichomonas Cancelled Urine Yeast Cancelled Urine Sperm Cancelled Ur Oval Fat Bodies Cancelled Ur Free Fat Droplets Cancelled Urine Glucose NEGATIVE (NEGATIVE) Urine Comment Cancelled Medications Given: Sodium Chloride (Ns) 1,000 mls @ 100 mls/hr IV CONT LOIDA Stop: 09/18/18 10:59 Last Admin: 03/22/18 12:08 Dose: 1,000 mls Ketorolac Tromethamine (Toradol) 15 mg IVP Q6H PRN PRN Reason: Pain, Breakthrough Stop: 03/27/18 12:17 Last Admin: 03/22/18 18:07 Dose: 15 mg Ondansetron HCl (Zofran) 4 mg IVP Q4HRS PRN PRN Reason: Nausea/Vomiting, Can't Take PO Stop: 09/18/18 10:45 Last Admin: 03/22/18 16:18 Dose: 4 mg Oxycodone HCl (Oxycodone Ir) 5 - 10 mg PO Q3HRS PRN PRN Reason: Pain, Severe Able to Take PO Stop: 04/01/18 10:45 Last Admin: 03/22/18 13:34 Dose: 5 mg Phenazopyridine HCl (Pyridium) 200 mg PO TID PRN PRN Reason: DYSURIA Stop: 09/18/18 14:11 Last Admin: 03/22/18 18:07 Dose: 200 mg Discontinued Medications Sodium Chloride (Ns) 1,000 mls @ 0 mls/hr IV EDNOW ONE; Wide Open PRN Reason: Protocol Stop: 03/22/18 06:41 Last Admin: 03/22/18 06:46 Dose: 1,000 mls Ceftriaxone Sodium/Dextrose (Rocephin 1 Gm (Premix)) 50 mls @ 100 mls/hr IV EDNOW ONE PRN Reason: Protocol Stop: 03/22/18 07:44 Last Admin: 03/22/18 07:20 Dose: 50 mls Sodium Chloride (Ns) 1,000 mls @ 0 mls/hr IV ONCE ONE PRN Reason: Wide Open Stop: 03/22/18 07:23 Last Admin: 03/22/18 07:24 Dose: 1,000 mls Sodium Chloride (Ns) 1,000 mls @ 0 mls/hr IV EDNOW ONE; Wide Open PRN Reason: Protocol Stop: 03/22/18 08:16 Last Admin: 03/22/18 08:17 Dose: 1,000 mls Ketorolac Tromethamine (Toradol) 30 mg IVP EDNOW ONE Stop: 03/22/18 06:41 Last Admin: 03/22/18 07:21 Dose: 30 mg Ondansetron HCl (Zofran) 4 mg IVP EDNOW ONE Stop: 03/22/18 06:41 Last Admin: 03/22/18 07:21 Dose: 4 mg Ondansetron HCl (Zofran) 4 mg IVP EDNOW ONE Stop: 03/22/18 08:17 Last Admin: 03/22/18 08:18 Dose: 4 mg Departure - Departure Disposition: [facility] Inpatient Acute Clinical Impression: Acute pyelonephritis, Cystitis Condition: Fair Report Scribed for: Herve Henry Report Scribed by: Aneta Flowers Date of Report: 03/22/18 Time of Report: 07:14
[2018-03-22] MEDS: KETOROLAC 30 MG/1 ML SDV IVP ONE ×2 (07:01→07:21)
[2018-03-22] MEDS: ONDANSETRON 4 MG/2 ML VIAL IVP ONE ×2 (07:02→07:21)
[2018-03-22] MEDS ORDERED: ONDANSETRON 4 MG/2 ML VIAL ONE (07:17)
[2018-03-22] MEDS ORDERED: KETOROLAC 30 MG/1 ML SDV ONE (07:17)
[2018-03-22] MEDS ORDERED: ONDANSETRON 4 MG/2 ML VIAL IVP ONE (08:16)
[2018-03-22 10:00] LABS: PLATELET COUNT 296 10^3/uL (150-400)
[2018-03-22] MEDS ORDERED: PROMETHAZINE HCL 25 MG/ML INJ IVP PRN (10:46)
[2018-03-22] MEDS ORDERED: ACETAMINOPHEN 325 MG TAB PO PRN (10:46)
[2018-03-22] MEDS ORDERED: HYDROCODONE/APAP 5/325 TAB PO PRN (10:46)
[2018-03-22] MEDS ORDERED: ONDANSETRON DISINTEGRATING 4 MG TAB PO PRN (10:46)
--- NOTE | 2018-03-22 11:52 | GHP ---
DATE OF ADMISSION: 03/22/2018 CHIEF COMPLAINT: Pelvic pain and flank pain. HPI: This patient is a 23-year-old healthy woman who comes in with urinary symptoms and back pain. She said her symptoms started about a week ago with some urinary frequency and dysuria, however, star harvinder to get better a few days ago, but then overnight, she started to get bilateral flank pain and wor sening dysuria overnight, so came into the emergency room this morning. She has had no fevers, chill s, or night sweats. She has had some nausea and vomiting and worsening pain. She has had multiple u rinary tract infections in the past and previous episodes of pyelonephritis as well, most recently ab out 6 months ago. She is sexually active and does have a whole host of things she does when she star ts getting symptoms at home to try and prevent urinary tract infections. REVIEW OF SYSTEMS: A 10-point review of systems was done and is negative except as stated in HPI. PAST MEDICAL HISTORY: Reactive airways disease, SIBO and celiac disease, as well as previous pyelone phritis. 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 She does not smoke and o ccasionally drinks alcohol on the weekends. FAMILY HISTORY: Unremarkable. MEDICATIONS: None. ALLERGIES: No known drug allergies. PHYSICAL EXAMINATION: VITAL SIGNS: She is afebrile. Heart rate is 110, blood pressure 101/63, resp irations 20, she is 96% on room air. GENERAL: She is a very healthy-appearing 23-year-old in modera te distress from pain. She is alert and oriented. HEENT: Pupils equal, extraocular movements intac t. Mucous membranes moist. Oropharynx clear. NECK: Supple. HEART: Regular rate and rhythm. Tac hycardic. No murmur. LUNGS: Clear to auscultation. No wheeze or rhonchi. ABDOMEN: Soft with luis e tenderness bilaterally with no guarding. EXTREMITIES: No clubbing, cyanosis, or edema. MUSCULOSK ELETAL: No joint deformities or effusions. SKIN: Intact, no rash. NEUROLOGICALLY: She is intact. PSYCHIATRIC: She has a normal mood and appropriate. LABORATORY DATA: CBC is within normal limits. Chemistry shows normal electrolytes and renal functio n. Urinalysis is positive for white cells and red cells. Abdominal pelvic ultrasound shows no hydro nephrosis. No cause for pain. Previous workup has included a CT urogram that showed no stones. ASSESSMENT AND PLAN: 1. 23-year-old presents with recurrent pyelonephritis, symptomatic with nausea, vomiting. She is cu rrently afebrile. Plan will be to admit her to the hospital for pain control and intravenous antibio tics. She already has had a workup including a CT urogram to rule out stone disease and has had a re nal ultrasound today. Given her frequent episodes of urinary tract infections and pyelonephritis, catie fuentes likely would benefit from a followup with a urologist once she is over this acute episode. She is seen at the [place], so can follow up with Dr. Guevara as an outpatient. In the meantime, we will continue ceftriaxone and transition to either Bactrim or Levaquin on discharge. 2. Celiac disease. A gluten free diet per patient. 3. Reactive airways disease. Patient currently stable. /[id number]/MODL
[2018-03-22] MEDS: ONDANSETRON 4 MG/2 ML VIAL IVP PRN ×3 (12:05→20:13)
[2018-03-22] MEDS: NS 1,000 ML IV SCH ×2 (12:08→22:18)
[2018-03-22] MEDS: KETOROLAC 15 MG/1 ML SDV IVP PRN ×2 (12:27→18:07)
[2018-03-22] MEDS: oxyCODONE IR 5 MG TAB PO PRN ×3 (13:34→22:17)
[2018-03-22] MEDS: PHENAZOPYRIDINE HCL 200 MG TAB PO PRN ×2 (14:43→18:07)
--- NOTE | 2018-03-22 21:30 | ASMTCMCOM ---
CM Note CM Note Notes: Chart reviewed for discharge planning purposes. 23 year old female admitted via ED with c/o flank pain and nausea, positive for UTI. OBS status for pain control and hydration. No needs identified. CM to follow. Plan: Likely independent when medically cleared for discharge to home. Date Signed: 03/22/2018 12:38 PM Electronically Signed By:Daria Martínez RN
[2018-03-23] MEDS: KETOROLAC 15 MG/1 ML SDV IVP PRN ×3 (00:11→14:02)
[2018-03-23 05:58] LABS: PLATELET COUNT 234 10^3/uL (150-400)
[2018-03-23] MEDS: PHENAZOPYRIDINE HCL 200 MG TAB PO PRN (08:05)
[2018-03-23] MEDS: NS 1,000 ML IV SCH (08:07)
[2018-03-23] MEDS: oxyCODONE IR 5 MG TAB PO PRN (08:42)
[2018-03-23 11:21] VITALS: BP 97/64
[2018-03-23] MEDS: ONDANSETRON 4 MG/2 ML VIAL IVP PRN (14:03)
--- NOTE | 2018-03-23 16:00 | PDDCSUM ---
Discharge Summary Discharge Summary: Date of Admission: 03/22/2018 Date of Discharge: 03/23/2018 Studies: 1. Complete retroperitoneal US: no visible etiology for pain, minimal debris in bladder Discharge Diagnoses: 1. Mild recurrent pyelonephritis 2. Back pain 3. Celiac disease 4. Reactive airways disease, stable Brief Hospital Course: 23yo F with a history of recurrent pyelonephritis/UTI presents with dysuria, bilateral (L>R) flank pain, and nausea and vomiting with subjective fevers. She had renal US which was unrevealing. UA was infected-appearing so she was started on CTX. Urine culture was pending. She was non-toxic and not septic. She was tolerating PO and pain controlled. Discharge to complete course of cefdinir. I encouraged her to see a urologist given her recurrent infection. She was given information to follow up with Dr Guevara as an outpatient. Medications: Please refer to EMR for complete list. I wrote a prescription for cefdinir 300mg BID PO #16. Follow Up Plan: 1. Follow up finalized urine culture results 2. Recommend establishing with urology Physical Exam: Vitals reviewed, afebrile. Alert and oriented, RRR without m/r/g , lungs clear, abdomen soft, left flank pain on palpation, no rashes.
== END 2018-03-23 16:37 | disposition home or self-care (01) ==
LOC: F1N 11:37
PROVIDERS: ADMIT Internal Medicine; ATTEND Internal Medicine
DX: N10 Acute pyelonephritis (principal); E86.9 Volume depletion, unspecified; K90.0 Celiac disease; J45.909 Unspecified asthma, uncomplicated; G43.909 Migraine, unspecified, not intractable, without status migrainosus; Z87.440 Personal history of urinary (tract) infections
CPT/HCPCS: 76770; 96361; 96365; 96375; 96376; 99285; G0378; J0696; J1885; J2405

== ENCOUNTER 2018-03-26 16:51 | Emergency (ER) | payer MEDICAID ==
[2018-03-26] MEDS ORDERED: FLUCONAZOLE 150 MG TAB PO ONE (17:14)
[2018-03-26] MEDS ORDERED: NS 1,000 ML IV ONE (17:14)
[2018-03-26] MEDS ORDERED: ACETAMINOPHEN 500 MG TAB PO ONE (17:15)
--- NOTE | 2018-03-26 17:21 | EDPHY ---
H & P Stated Complaint: tx for pyelonephritis/dc thurs increasing l flank pain/fever Time Seen by Provider: 03/26/18 17:07 HPI/ROS: CHIEF COMPLAINT: Left flank pain HISTORY OF PRESENT ILLNESS: Patient is a 23-year-old female with a history of frequent urinary tract infections who was admitted last week for pyelonephritis for 24 hr. She was discharged on cefdinir and had follow-up arranged with Dr. Jessica. She states that her pain has worsened today and she is nauseous. No fever. She has been nauseous but not vomiting. She is still taking the cefdinir. Her urine culture came back negative except for Amy. She has not had a rash. Patient has history of celiac disease and reactive airway disease. She states that Dr. Jessica does not take her insurance. She took ibuprofen just before coming. no history of kidney stones. Severity: Moderate Modifying factors: None REVIEW OF SYSTEMS: Constitutional: denies: chills, fever, recent illness, recent injury EENTM: denies: blurred vision, double vision, nose congestion Respiratory: denies: cough, shortness of breath Cardiac: denies: chest pain, irregular heart rate, lightheadedness, palpitations Gastrointestinal/Abdominal: denies: abdominal pain, diarrhea, nausea, vomiting, blood streaked stools Genitourinary: See HPI Musculoskeletal: denies: joint pain, muscle pain Skin: denies: lesions, rash, jaundice, bruising Neurological: denies: headache, numbness, paresthesia, tingling, dizziness, weakness Hematologic/Lymphatic: denies: blood clots, easy bleeding, easy bruising Immunologic/allergic: denies: HIV/AIDS, transplant 10 systems reviewed and negative except as noted EXAM: GENERAL: Well-appearing, well-nourished and in no acute distress. HEAD: Atraumatic, normocephalic. EYES: Pupils equal round and reactive to light, extraocular movements intact, sclera anicteric, conjunctiva are normal. ENT: TMs normal, nares patent, oropharynx clear without exudates. Moist mucous membranes. NECK: Normal range of motion, supple without lymphadenopathy or JVD. LUNGS: Breath sounds clear to auscultation bilaterally and equal. No wheezes rales or rhonchi. HEART: Regular rate and rhythm without murmurs, rubs or gallops. ABDOMEN: Soft, nontender, normoactive bowel sounds. No guarding, no rebound. No masses appreciated. BACK: Left CVA tenderness, no spinal tenderness, step-offs or deformities EXTREMITIES: Normal range of motion, no pitting or edema. No clubbing or cyanosis. NEUROLOGICAL: Cranial nerves II through XII grossly intact. Normal speech, normal gait. 5/5 strength, normal movement in all extremities, normal sensation , normal reflexes PSYCH: Normal mood, normal affect. SKIN: Warm, dry, normal turgor, no visible rashes or lesions. Source: Patient Exam Limitations: No limitations - Personal History LMP (Females 10-55): 15-21 Days Ago Current Tetanus Diphtheria and Acellular Pertussis (TDAP): Yes - Medical/Surgical History Hx Asthma: Yes Hx Chronic Respiratory Disease: No Hx Diabetes: No Hx Cardiac Disease: No Hx Renal Disease: No Hx Cirrhosis: No Hx Alcoholism: No Hx HIV/AIDS: No Hx Splenectomy or Spleen Trauma: No Other PMH: PSH: tooth implant;. PMH: ovarian cyst; uti; kidney infection, MIGRAINES, ASTHMA - Family History Significant Family History: No pertinent family hx - Social History Smoking Status: Never smoked Alcohol Use: Sober Drug Use: None Constitutional: Initial Vital Signs Temperature (C) 36.4 C 03/26/18 16:54 Heart Rate 125 H 03/26/18 16:54 Respiratory Rate 20 03/26/18 16:54 Blood Pressure 132/107 H 03/26/18 16:54 O2 Sat (%) 97 03/26/18 16:54 O2 Delivery Mode Room Air Allergies/Adverse Reactions: gluten Allergy (Verified 03/26/18 16:53) Home Medications: Medication Instructions Recorded Ondansetron Odt [Zofran Odt 4 mg 4 mg PO Q4 PRN #10 tab 03/22/18 (RX)] Cefdinir [Omnicef (*)] 300 mg PO BID #16 cap 03/23/18 Medical Decision Making ED Course/Re-evaluation: She does not wish to have narcotics. I will treat her with Tylenol and Zofran as well as Diflucan. We will hydrate her and obtain lab work. 5:50 p.m. the patient's urinalysis is very reassuring. She states that she is feeling better after Tylenol. She has also been given Diflucan which should be a 1 time dose. She will continue taking the cefdinir. We discussed other options for pain control and she declined opiates. Her kidney function is doing good. No hematuria which would be concerning for stones. I offered further observation but she would prefer to go home. We discussed indications for returning. Differential Diagnosis: Partial list of the Differential diagnosis considered include but were not limited to; urinary tract infection, pyelonephritis, candidate infection, kidney stone and although unlikely based on the history and physical exam, I also considered ,. I discussed these differential diagnoses and the plan with the patient as well as the usual and expected course. The patient understands that the diagnosis is provisional and that in medicine we are not always correct and that further workup is often warranted. Usual and customary warnings were given. All of the patient's questions were answered. The patient was instructed to return to the emergency department should the symptoms at all worsen or return, otherwise to followup with the physician as we discussed. - Data Points Laboratory Results: Laboratory Results 03/26/18 17:15 03/26/18 17:15 03/26/1818 18 17:15 17:15 17:15 WBC 7.73 10^3/uL 10^3/uL (3.80-9.50) RBC 4.98 10^6/uL 10^6/uL (4.18-5.33) Hgb 14.9 g/dL g/dL (12.6-16.3) Hct 44.8 % % (38.0-47.0) MCV 90.0 fL fL (81.5-99.8) MCH 29.9 pg pg (27.9-34.1) MCHC 33.3 g/dL g/dL (32.4-36.7) RDW 13.2 % % (11.5-15.2) Plt Count 331 10^3/uL 10^3/uL (150-400) MPV 9.3 fL fL (8.7-11.7) Neut % (Auto) 63.3 % % (39.3-74.2) Lymph % (Auto) 28.2 % % (15.0-45.0) Millard % (Auto) 6.3 % % (4.5-13.0) Eos % (Auto) 1.4 % % (0.6-7.6) Baso % (Auto) 0.5 % % (0.3-1.7) Nucleat RBC Rel Count 0.0 % % (0.0-0.2) Absolute Neuts (auto) 4.89 10^3/uL 10^3/uL (1.70-6.50) Absolute Lymphs (auto) 2.18 10^3/uL 10^3/uL (1.00-3.00) Absolute Monos (auto) 0.49 10^3/uL 10^3/uL (0.30-0.80) Absolute Eos (auto) 0.11 10^3/uL 10^3/uL (0.03-0.40) Absolute Basos (auto) 0.04 10^3/uL 10^3/uL (0.02-0.10) Absolute Nucleated RBC 0.00 10^3/uL 10^3/uL (0-0.01) Immature Gran % 0.3 % % (0.0-1.1) Immature Gran # 0.02 10^3/uL 10^3/uL (0.00-0.10) Sodium 138 mEq/L mEq/L (135-145) Potassium 4.0 mEq/L mEq/L (3.5-5.2) Chloride 105 mEq/L mEq/L (97-110) Carbon Dioxide 22 mEq/l mEq/l (22-31) Anion Gap 11 mEq/L mEq/L (6-14) BUN 11 mg/dL mg/dL (7-23) Creatinine 0.8 mg/dL mg/dL (0.6-1.0) Estimated GFR > 60 Glucose 92 mg/dL mg/dL (70-100) Calcium 9.8 mg/dL mg/dL (8.5-10.4) Beta HCG, Qual NEGATIVE Urine Color Urine Appearance Urine pH Ur Specific [place] Urine Protein Urine Ketones Urine Blood Urine Nitrate Urine Bilirubin Urine Urobilinogen Ur Leukocyte Esterase Urine RBC Urine WBC Ur Epithelial Cells Urine Glucose 03/26/18 16:58 WBC RBC Hgb Hct MCV MCH MCHC RDW Plt Count MPV Neut % (Auto) Lymph % (Auto) Millard % (Auto) Eos % (Auto) Baso % (Auto) Nucleat RBC Rel Count Absolute Neuts (auto) Absolute Lymphs (auto) Absolute Monos (auto) Absolute Eos (auto) Absolute Basos (auto) Absolute Nucleated RBC Immature Gran % Immature Gran # Sodium Potassium Chloride Carbon Dioxide Anion Gap BUN Creatinine Estimated GFR Glucose Calcium Beta HCG, Qual Urine Color PALE YELLOW Urine Appearance CLEAR Urine pH 7.0 (5.0-7.5) Ur Specific [place] 1.006 (1.002-1.030) Urine Protein NEGATIVE (NEGATIVE) Urine Ketones NEGATIVE (NEGATIVE) Urine Blood NEGATIVE (NEGATIVE) Urine Nitrate NEGATIVE (NEGATIVE) Urine Bilirubin NEGATIVE (NEGATIVE) Urine Urobilinogen NEGATIVE EU EU (0.2-1.0) Ur Leukocyte Esterase NEGATIVE (NEGATIVE) Urine RBC 1-3 /hpf /hpf (0-3) Urine WBC 1-3 /hpf /hpf (0-3) Ur Epithelial Cells TRACE /lpf /lpf (NONE-1+) Urine Glucose NEGATIVE (NEGATIVE) Medications Given: Discontinued Medications Acetaminophen (Tylenol) 1,000 mg PO EDNOW ONE Stop: 03/26/18 17:16 Last Admin: 03/26/18 17:22 Dose: 1,000 mg Fluconazole (Diflucan) 150 mg PO ONCE ONE Stop: 03/26/18 17:15 Last Admin: 18 17:22 Dose: 150 mg Sodium Chloride (Ns) 1,000 mls @ 0 mls/hr IV EDNOW ONE; Wide Open PRN Reason: Protocol Stop: 03/26/18 17:15 Last Admin: 03/26/18 17:16 Dose: 1,000 mls Departure - Departure Disposition: Home, Routine, Self-Care Clinical Impression: Amy infection Urinary tract infection Qualifiers: Urinary tract infection type: site unspecified Hematuria presence: without hematuria Qualified Code(s): N39.0 - Urinary tract infection, site not specified Condition: Fair Instructions: Urinary Tract Infection in Women (ED), Yeast Infection (ED) Referrals: NONE *PRIMARY CARE P,. [Primary Care Provider] - As per Instructions Aydin Louise MD [Medical Doctor] - 5-7 days, call for appt.
[2018-03-26 17:31] LABS: PLATELET COUNT 331 10^3/uL (150-400)
[2018-03-26 18:03] VITALS: BP 122/76
== END 2018-03-26 18:02 | disposition home or self-care (01) ==
DX: B37.9 Candidiasis, unspecified (principal); N39.0 Urinary tract infection, site not specified; E86.9 Volume depletion, unspecified; Z79.2 Long term (current) use of antibiotics

== ENCOUNTER 2018-06-21 17:10 | Emergency (ER) | payer MEDICAID ==
[2018-06-21] MEDS ORDERED: KETOROLAC 30 MG/1 ML SDV ONE (19:10)
[2018-06-21] MEDS ORDERED: KETOROLAC 30 MG/1 ML SDV IVP ONE (19:12)
[2018-06-21] MEDS ORDERED: NS 1,000 ML IV ONE ×2 (19:12→19:45)
[2018-06-21 19:19] LABS: PLATELET COUNT 337 10^3/uL (150-400)
[2018-06-21] MEDS ORDERED: LORazepam 2 MG/ML INJ ONE (19:44)
[2018-06-21] MEDS ORDERED: ONDANSETRON 4 MG/2 ML VIAL ONE (19:44)
[2018-06-21] MEDS ORDERED: LORazepam 2 MG/ML INJ IVP ONE (19:45)
[2018-06-21] MEDS ORDERED: ONDANSETRON 4 MG/2 ML VIAL IVP ONE (19:45)
[2018-06-21] MEDS ORDERED: CYCLOBENZAPRINE 10MG PREPACK#3 BTL TAKEHOME ONE (21:22)
--- NOTE | 2018-06-21 21:36 | EDPHY ---
H & P Stated Complaint: R side back pain/chills/nausea since last night. weak, Hx pylo recent Time Seen by Provider: 06/21/18 18:53 HPI/ROS: CHIEF COMPLAINT: flank pain HISTORY OF PRESENT ILLNESS: This is a 23 year old female with a self reported history of multiple episodes of pyelonephritis who presents with right flank pain that developed this morning. She feels weak and fatigued, slept most of the day. She reports diffuse joint pain and chills. She has had nausea but no vomiting. She describes diarrhea over the past week that she thinks is related to antibiotics that she has been taking for UTI/pyelonephritis (Keflex). She completed a seven day course of keflex. She has tried ibuprofen today, minimal relief of pain. She was admitted to [facility] overnight on 06/08/18 and diagnosed with acute cystitis. Their notes indicate that her clinical exxam was consistent with pyelonephritis, but final dx was cystitis. CT of the abd/ pelvis showed left ovarian cyst, otherwise normal. Appendix not visualized on CT.RUQ US normal. Pelvic US showed left ovarian simple cyst, all else normal. She was discharged on Keflex, pyridium, zofran prn, tramadol prn. She was admitted to this hospital March 22, 2018 with flank and pelvic pain. REVIEW OF SYSTEMS: A ten system review of systems was performed and is negative with the exception of the items mentioned in the HPI. Past medical history: Recurrent pyelonephritis/cystitis, RAD, celiac disease Past surgical history: Negative Social history: [employer] student. No tobacco use. Occasional social ETOH. General Appearance: Alert. Vital signs reviewed. HR 112, RR 24 at triage. Eyes: Pupils equal and round, no conjunctival injection, no discharge. Anicteric. ENT, Mouth: Mucous membranes are moist, no oropharyngeal erythema or edema. Neck: No lymphadenopathy, supple. Respiratory: Lungs are clear to auscultation; no wheezes, rales, or rhonchi. Cardiovascular: Regular rate and rhythm; no murmur, rub, or gallop. Gastrointestinal: Abdomen is soft and nontender, no masses or organomegaly, bowel sounds normal. Skin: Warm and dry, no rashes on exposed skin, normal color. Back: Nontender to palpation over the thoracolumbar spine. Right CVAT. Extremities: No lower extremity edema, no calf tenderness or swelling. Neurological: Alert and oriented. Moving all four extremities easily and equally. Psychiatric: Normal affect. - Personal History Current Tetanus/Diphtheria Vaccine: Yes - Medical/Surgical History Hx Asthma: Yes Hx Chronic Respiratory Disease: No Hx Diabetes: No Hx Cardiac Disease: No Hx Renal Disease: No Hx Cirrhosis: No Hx Alcoholism: No Hx HIV/AIDS: No Hx Splenectomy or Spleen Trauma: No Other PMH: PSH: tooth implant;. PMH: ovarian cyst; uti; kidney infection, MIGRAINES, ASTHMA - Social History Smoking Status: Never smoked Constitutional: Initial Vital Signs Temperature (C) 37.1 C 06/21/18 17:33 Heart Rate 112 H 06/21/18 17:33 Respiratory Rate 24 H 06/21/18 17:33 Blood Pressure 106/69 06/21/18 17:33 O2 Sat (%) 96 06/21/18 17:33 O2 Delivery Mode Room Air Allergies/Adverse Reactions: gluten Allergy (Verified 06/21/18 17:32) Home Medications: Medication Instructions Recorded Ondansetron Odt [Zofran Odt 4 mg 4 mg PO Q4 PRN #10 tab 03/22/18 (RX)] Cefdinir [Omnicef (*)] 300 mg PO BID #16 cap 03/23/18 Nitrofurantoin Macrobid [Macrobid] 100 mg PO BID #10 cap 06/21/18 Medical Decision Making ED Course/Re-evaluation: UA with 1+ blood, urobilinogen, LE, 15-25 WBCs, 1+ bacteria, 2+ epithelial cells , mucous. I do not think that this is a particularly clean sample. Sent for culture. Clinically she has signs/symptoms of cystitis, possibly pyelonephritis. However , in the past it seems that she has not had evidence of pyelo on imaging studies. It is concerning that this is a recurrent problem for her. She completed a course of antibiotics recently. She has undergone abd/pelvis CT scanning, US of pelvis and RUQ in the past two weeks. In March she had renal ultrasound and has had a CT urogram in the past. She received 2 L IV leaned normal saline and 1 g IV ceftriaxone in the emergency department. She is being discharged on Macrobid. She is able to take p.o.. Vital signs essentially normal at discharge (blood pressure 125/74). No fever. I strongly recommend FU with urology. She has been given referrals in the past , but there was some issue with the referrals (insurance? personality not meshing?). I am providing her with two referrals. Differential Diagnosis: Back pain including but not limited to muscular pain, herniated disc, spine fracture, intra-abdominal causes and urinary tract infection. - Data Points Laboratory Results: Laboratory Results 06/21/18 19:00 06/21/18 19:00 Medications Given: Discontinued Medications Cyclobenzaprine HCl (Flexeril 10 Mg Prepack#3) 1 btl TAKEHOME EDNOW ONE Stop: 06/21/18 21:23 Last Admin: 06/21/18 21:46 Dose: 1 btl Sodium Chloride (Ns) 1,000 mls @ 0 mls/hr IV EDNOW ONE; Wide Open PRN Reason: Protocol Stop: 06/21/18 19:13 Last Admin: 06/21/18 19:13 Dose: 1,000 mls Sodium Chloride (Ns) 1,000 mls @ 0 mls/hr IV EDNOW ONE; Wide Open PRN Reason: Protocol Stop: 06/21/18 19:46 Last Admin: 06/21/18 19:46 Dose: 1,000 mls Ceftriaxone Sodium/Dextrose (Rocephin 1 Gm (Premix)) 50 mls @ 100 mls/hr IV EDNOW ONE PRN Reason: Protocol Stop: 06/21/18 21:11 Last Admin: 06/21/18 20:57 Dose: 50 mls Ketorolac Tromethamine (Toradol) 30 mg IVP ONCE ONE Stop: 06/21/18 19:13 Last Admin: 06/21/18 19:12 Dose: 30 mg Lorazepam (Ativan Injection) 2 mg IVP EDNOW ONE Stop: 06/21/18 19:46 Last Admin: 06/21/18 19:47 Dose: 2 mg Ondansetron HCl (Zofran) 4 mg IVP EDNOW ONE Stop: 06/21/18 19:46 Last Admin: 06/21/18 19:47 Dose: 4 mg Departure - Departure Disposition: Home, Routine, Self-Care Clinical Impression: Urinary tract infection Qualifiers: Urinary tract infection type: acute cystitis Hematuria presence: with hematuria Qualified Code(s): N30.01 - Acute cystitis with hematuria Condition: Good Instructions: Urinary Tract Infection in Women (ED) Additional Instructions: I am prescribing an antibiotic, Macrobid/nitrofurantoin, for urine infection. You should take this twice daily. Take all of the pills. A urine culture has been sent. I am referring you to Urology and would encourage you to arrange an appointment. I know that it is difficult finding someone to accept your insurance but it is important for you to see a specialist. Referrals: NONE *PRIMARY CARE P,. [Primary Care Provider] - As per Instructions Radha Goldsmith MD [Medical Doctor] - As per Instructions Ivett Aleman MD [Medical Doctor] - As per Instructions Prescriptions: Nitrofurantoin Macrobid [Macrobid] 100 mg PO BID #10 cap
[2018-06-21 22:05] VITALS: BP 125/74
--- NOTE | 2018-06-24 10:16 | ASMTCMCOM ---
CM Note CM Note Notes: Patient follow up regarding urology follow up after ED visit on 06/21/18. Referral faxed to [facility] after speaking with Tanya at the office. Patient contacted and provided Urology phone number to schedule appointment. CM call back number provided and patient told to call this CM back if she has any difficulty getting scheduled CM available prn Date Signed: 06/24/2018 10:15 AM Electronically Signed By:Radha Moser RN
== END 2018-06-21 22:00 | disposition home or self-care (01) ==
DX: N30.01 Acute cystitis with hematuria (principal); E86.9 Volume depletion, unspecified
CPT/HCPCS: 96365; J0696; J1885; J2060; J2405

== ENCOUNTER 2018-07-14 00:26 | Emergency (ER) | payer MEDICAID ==
--- NOTE | 2018-07-14 00:50 | EDPHY ---
H & P Stated Complaint: body cramping Time Seen by Provider: 07/14/18 00:49 HPI/ROS: HPI CHIEF COMPLAINT: "Whole body spasms" HISTORY OF PRESENT ILLNESS: 23-year-old female, presents emergency room with whole body spasms. States she has been suffering from joint pain for years now , and muscle spasms however entire body over the past few months. She has had recurring urinary tract infections and pyelonephritis. She saw her urologist yesterday for recurrent Urinary tract infections She arrives to the emergency room with whole body spasms. She is having cramping throughout her entire body. She complains of her hands and feet turning in, also complains that her legs are turning and she is having muscle spasms. Patient reports no new medications. Denies illicit drug use. Alcohol this evening. She states she is unable to control these. These have been a rather new phenomenon over the past 2-3 months. She reports to me she seen numerous doctors for this however is unsure what is causing them. Past Medical History: Significant medical history for UTI, cystitis, pyelonephritis, celiac disease Past Surgical History: Denies significant surgical history Social History: Alcohol this evening. Denies other illicit drugs Family History: ROS REVIEW OF SYSTEMS: 10 Systems were reviewed and negative with the exception of the elements mentioned in the history of present illness. Exam Constitutional nontoxic no acute distress, vital signs stable, afebrile, triage nursing summary reviewed, vital signs reviewed, awake/alert. Eyes normal conjunctivae and sclera, EOMI, PERRLA. HENT normal inspection, atraumatic, moist mucus membranes, no epistaxis, neck supple/ no meningismus, no raccoon eyes. Respiratory clear to auscultation bilaterally, normal breath sounds, no respiratory distress, no wheezing. Cardiovascular rate normal, regular rhythm, no murmur, no edema, distal pulses normal. Gastrointestinal soft, non-tender, no rebound, no guarding, normal bowel sounds, no distension, no pulsatile mass. Genitourinary no CVA tenderness. Musculoskeletal on exam she has her feet turned inward, and clenching her toes, as well as clenching her left leg in. No seizure-like activity. No visible muscle spasms on exam. No clonus no midline vertebral tenderness, full range of motion, no calf swelling, no tenderness of extremities, no meningismus, good pulses, neurovascularly intact. Skin pink, warm, & dry, no rash, skin atraumatic. Neurologic awake, alert and oriented x 3, AAOx3, moves all 4 extremities equally, motor intact, sensory intact, CN II-XII intact, normal cerebellar, normal vision, normal speech. Psychiatric normal mood/affect. Heme/Lymph/Immune no lymphadenopathy. Differential Diagnosis: Includes but is not limited to in a particular order dehydration, electrolyte disturbance, acute anxiety attack, panic attack, infection Medical Decision Making: Plan for this patient IV establishment IV fluid bolus , IV Ativan for anxiety, basic electrolytes, check chemistry, magnesium, calcium , re-evaluate. Urinalysis, alcohol level, drug screen. Re-evaluation: Alcohol level 131. Drug screen positive for cocaine. Patient's electrolytes are appropriate. Most likely having muscle spasms due to cocaine abuse, alcohol intoxication and dehydration. I counseled her on cocaine use, alcohol. Highly recommend she refrain from drinking alcohol in doing cocaine. She did receive IV fluids here 2 L normal saline, as well as IV Ativan. Patient reports to me that she did cocaine 2 days ago. Shows report she drank whiskey tonight. When I explained that she should be taking better care of herself staying well hydrated eating and drinking fluids appropriately and resting as she has been being worked up for joint pain muscle spasms and recurrent UTIs. I recommend she refrain from doing cocaine and alcohol. Her electrolytes are appropriate. Vital signs are stable. She is feeling much better after 2 L of fluid and IV Ativan. Re-examination 356 a.m.: no acute distress resting comfortably. No complaints this time. No further muscle spasms complaints. 0455: Patient re-evaluated this time resting comfortably no acute distress. She ambulated well throughout the emergency without any difficulty. She no longer has any muscle spasms. She is well-hydrated 2 L of fluid. 1 mg Ativan was given for anxiety. She denies any chest pain or shortness of breath. Counseled her on alcohol and drug cessation. Recommend she follows up with her primary care doctor. Return precautions discussed. Return if worsening symptoms she is comfortable now understands and is agreeable and comfortable discharge. Source: Patient - Personal History LMP (Females 10-55): Now Current Tetanus/Diphtheria Vaccine: Yes Current Tetanus Diphtheria and Acellular Pertussis (TDAP): Yes - Medical/Surgical History Hx Asthma: Yes Hx Chronic Respiratory Disease: No Hx Diabetes: No Hx Cardiac Disease: No Hx Renal Disease: No Hx Cirrhosis: No Hx Alcoholism: No Hx HIV/AIDS: No Hx Splenectomy or Spleen Trauma: No Other PMH: PSH: tooth implant;. PMH: ovarian cyst; uti; kidney infection, MIGRAINES, ASTHMA - Social History Smoking Status: Never smoked Constitutional: Initial Vital Signs Temperature (C) 36.9 C 07/14/18 00:28 Heart Rate 107 H 07/14/18 00:28 Respiratory Rate 18 07/14/18 00:28 Blood Pressure 115/99 H 07/14/18 00:28 O2 Sat (%) 98 07/14/18 00:28 O2 Delivery Mode Room Air Allergies/Adverse Reactions: gluten Allergy (Verified 07/14/18 00:31) Home Medications: Medication Instructions Recorded Ondansetron Odt [Zofran Odt 4 mg 4 mg PO Q4 PRN #10 tab 03/22/18 (RX)] Nitrofurantoin Macrobid [Macrobid] 100 mg PO BID #10 cap 06/21/18 Sertraline HCl 07/14/18 Medical Decision Making - Data Points Laboratory Results: Laboratory Results 07/14/18 00:58 07/14/18 00:58 07/14/18 07/14/18 07/14/18 02:45 00:58 00:58 WBC RBC Hgb Hct MCV MCH MCHC RDW Plt Count MPV Neut % (Auto) Lymph % (Auto) Mitchell % (Auto) Eos % (Auto) Baso % (Auto) Nucleat RBC Rel Count Absolute Neuts (auto) Absolute Lymphs (auto) Absolute Monos (auto) Absolute Eos (auto) Absolute Basos (auto) Absolute Nucleated RBC Immature Gran % Immature Gran # Sodium Potassium Chloride Carbon Dioxide Anion Gap BUN Creatinine Estimated GFR Glucose Calcium Magnesium Total Bilirubin Conjugated Bilirubin Unconjugated Bilirubin AST ALT Alkaline Phosphatase Creatine Kinase 71 IU/L IU/L (0-156) Total Protein Albumin Lipase Beta HCG, Qual NEGATIVE Urine Color PALE YELLOW Urine Appearance CLEAR Urine pH 8.0 H (5.0-7.5) Ur Specific [place] 1.008 (1.002-1.030) Urine Protein NEGATIVE (NEGATIVE) Urine Ketones NEGATIVE (NEGATIVE) Urine Blood NEGATIVE (NEGATIVE) Urine Nitrate NEGATIVE (NEGATIVE) Urine Bilirubin NEGATIVE (NEGATIVE) Urine Urobilinogen NEGATIVE EU EU (0.2-1.0) Ur Leukocyte Esterase NEGATIVE (NEGATIVE) Urine Glucose NEGATIVE (NEGATIVE) Urine Opiates Screen NEGATIVE (NEGATIVE) Urine Barbiturates NEGATIVE (NEGATIVE) Ur Phencyclidine Scrn NEGATIVE (NEGATIVE) Ur Amphetamine Screen NEGATIVE (NEGATIVE) U Benzodiazepines Scrn NEGATIVE (NEGATIVE) Urine Cocaine Screen NON-NEGATIVE H (NEGATIVE) U Marijuana (THC) Screen NON-NEGATIVE H (NEGATIVE) Ethyl Alcohol 07/14/18 07/14/18 00:58 00:58 WBC 6.42 10^3/uL 10^3/uL (3.80-9.50) RBC 4.78 10^6/uL 10^6/uL (4.18-5.33) Hgb 14.2 g/dL g/dL (12.6-16.3) Hct 42.3 % % (38.0-47.0) MCV 88.5 fL fL (81.5-99.8) MCH 29.7 pg pg (27.9-34.1) MCHC 33.6 g/dL g/dL (32.4-36.7) RDW 13.1 % % (11.5-15.2) Plt Count 368 10^3/uL 10^3/uL (150-400) MPV 8.8 fL fL (8.7-11.7) Neut % (Auto) 62.1 % % (39.3-74.2) Lymph % (Auto) 32.4 % % (15.0-45.0) Mitchell % (Auto) 3.7 % L % (4.5-13.0) Eos % (Auto) 1.1 % % (0.6-7.6) Baso % (Auto) 0.5 % % (0.3-1.7) Nucleat RBC Rel Count 0.0 % % (0.0-0.2) Absolute Neuts (auto) 3.99 10^3/uL 10^3/uL (1.70-6.50) Absolute Lymphs (auto) 2.08 10^3/uL 10^3/uL (1.00-3.00) Absolute Monos (auto) 0.24 10^3/uL L 10^3/uL (0.30-0.80) Absolute Eos (auto) 0.07 10^3/uL 10^3/uL (0.03-0.40) Absolute Basos (auto) 0.03 10^3/uL 10^3/uL (0.02-0.10) Absolute Nucleated RBC 0.00 10^3/uL 10^3/uL (0-0.01) Immature Gran % 0.2 % % (0.0-1.1) Immature Gran # 0.01 10^3/uL 10^3/uL (0.00-0.10) Sodium 144 mEq/L mEq/L (135-145) Potassium 4.3 mEq/L mEq/L (3.5-5.2) Chloride 108 mEq/L mEq/L (97-110) Carbon Dioxide 22 mEq/l mEq/l (22-31) Anion Gap 14 mEq/L mEq/L (6-14) BUN 8 mg/dL mg/dL (7-23) Creatinine 0.7 mg/dL mg/dL (0.6-1.0) Estimated GFR > 60 Glucose 90 mg/dL mg/dL (70-100) Calcium 9.7 mg/dL mg/dL (8.5-10.4) Magnesium 2.0 mg/dL mg/dL (1.6-2.3) Total Bilirubin 0.3 mg/dL mg/dL (0.1-1.4) Conjugated Bilirubin 0.3 mg/dL mg/dL (0.0-0.5) Unconjugated Bilirubin 0.0 mg/dL mg/dL (0.0-1.1) AST 20 IU/L IU/L (14-46) ALT 20 IU/L IU/L (9-52) Alkaline Phosphatase 66 IU/L IU/L (38-126) Creatine Kinase 71 IU/L IU/L (0-156) Total Protein 7.7 g/dL g/dL (6.3-8.2) Albumin 4.7 g/dL g/dL (3.5-5.0) Lipase 98 IU/L IU/L (23-300) Beta HCG, Qual Urine Color Urine Appearance Urine pH Ur Specific [place] Urine Protein Urine Ketones Urine Blood Urine Nitrate Urine Bilirubin Urine Urobilinogen Ur Leukocyte Esterase Urine Glucose Urine Opiates Screen Urine Barbiturates Ur Phencyclidine Scrn Ur Amphetamine Screen U Benzodiazepines Scrn Urine Cocaine Screen U Marijuana (THC) Screen Ethyl Alcohol 131 mg/dL H mg/dL (0-10) Medications Given: Discontinued Medications Sodium Chloride (Ns) 1,000 mls @ 0 mls/hr IV EDNOW ONE; Wide Open PRN Reason: Protocol Stop: 07/14/18 01:13 Last Admin: 07/14/18 01:17 Dose: 1,000 mls Sodium Chloride (Ns) 1,000 mls @ 0 mls/hr IV EDNOW ONE; Wide Open PRN Reason: Protocol Stop: 07/14/18 01:13 Last Admin: 07/14/18 01:21 Dose: 1,000 mls Lorazepam (Ativan Injection) 1 mg IVP EDNOW ONE Stop: 07/14/18 01:14 Last Admin: 07/14/18 01:17 Dose: 1 mg Departure - Departure Disposition: Home, Routine, Self-Care Clinical Impression: Alcohol intoxication, Cocaine abuse, Dehydration Condition: Good Instructions: Dehydration (ED), Cocaine Abuse (ED), Alcohol Intoxication (ED) Referrals: NONE *PRIMARY CARE P,. [Primary Care Provider] - As per Instructions [facility],. [Clinic] - As per Instructions
[2018-07-14] MEDS ORDERED: NS 1,000 ML IV ONE ×2 (01:12)
[2018-07-14] MEDS ORDERED: LORazepam 2 MG/ML INJ IVP ONE (01:13)
[2018-07-14 01:27] LABS: PLATELET COUNT 368 10^3/uL (150-400)
[2018-07-14 01:37] LABS: CREATINE KINASE 71 IU/L (0-156)
[2018-07-14 04:21] LABS: CREATINE KINASE 71 IU/L (0-156)
[2018-07-14 05:30] VITALS: BP 93/53
== END 2018-07-14 05:30 | disposition home or self-care (01) ==
DX: F10.920 Alcohol use, unspecified with intoxication, uncomplicated (principal); F14.90 Cocaine use, unspecified, uncomplicated; E86.0 Dehydration; R25.2 Cramp and spasm
CPT/HCPCS: 80305; 96374; G0480; J2060